=== PATIENT | female | born 1995 | race African-American/Black ===

== ENCOUNTER 2023-02-17 04:49 | Day surgery (SDC) | payer OTHER ==
[2023-02-13 10:33] VITALS: BMI 21.9
[2023-02-17 13:41] VITALS: TEMP 97.8
[2023-02-17 13:46] VITALS: RESP 20
[2023-02-17 14:06] VITALS: BP 111/65; PULSE 88
== END 2023-02-17 14:21 | disposition home or self-care (01) ==
LOC: JASU-ENDO 04:49
PROVIDERS: ATTEND Student in an Organized Health Care Education/Training Program
PROC: 0DB78ZX Excision of Stomach, Pylorus, Via Natural or Artificial Opening Endoscopic, Diagnostic (ICD-10-PCS; 2023-02-17)
PROC: 0DB68ZX Excision of Stomach, Via Natural or Artificial Opening Endoscopic, Diagnostic (ICD-10-PCS; principal; 2023-02-17 14:00)
DX: K29.50 Unspecified chronic gastritis without bleeding (principal); B96.81 Helicobacter pylori [H. pylori] as the cause of diseases classified elsewhere
CPT/HCPCS: 81025; 88305-TC; 88342-TC

== ENCOUNTER 2023-12-07 12:47 | Inpatient (IN) | payer OTHER ==
[2023-12-07] MEDS: ELECTROLYTE-148 SOLN 1,000 ML IV SCH (14:00)
[2023-12-07] MEDS ORDERED: BUTORPHANOL TARTRATE 1 MG/ML VIAL IVPB PRN (14:15)
[2023-12-07 14:56] VITALS: BMI 25.8
[2023-12-07 15:11] LABS: BASO % 0.6 % (0-2.0); EOS % 1.5 % (0-4.5); HEMATOCRIT 32.9 % (32.4-45.2); HEMOGLOBIN 11.5 GM/dL (10.7-15.3); LYMPH % 12.6 % (8-40); MCH 27.1 pg (25.7-33.7); MCHC 35.1 g/dl (32.0-36.0); MEAN CELL VOLUME 77.2 fl (80-96); MEAN PLT VOLUME 9.9 fl (7.5-11.1); MONO % 13.7 % (3.8-10.2); NEUT % 71.6 % (42.8-82.8); PLATELET COUNT 276 10^3/uL (134-434); RBC 4.27 M/mm3 (3.60-5.2); RDW 16.8 % (11.6-15.6); WHITE BLOOD COUNT 9.2 K/mm3 (4.0-10.0)
[2023-12-07 15:16] LABS: INR 0.93 (0.83-1.09); PROTHROMBIN TIME (PATIENT) 10.8 SEC (9.7-13.0)
[2023-12-07 15:19] LABS: ACTIVATED PTT 25.5 SECONDS (25.2-36.5)
[2023-12-07 15:33] LABS: POTASSIUM 4.4 mmol/L (3.5-5.1)
[2023-12-07 15:35] LABS: BLOOD UREA NITROGEN 5.9 mg/dL (7-18); CALCIUM 8.9 mg/dL (8.5-10.1)
[2023-12-07 15:39] LABS: CREATININE 0.5 mg/dL (0.55-1.3)
[2023-12-07] MEDS: DINOPROSTONE 10 MG VAGINAL SUPPOSITORY VG ONE (15:45)
[2023-12-07 16:30] LABS: HIV INTERPRETATION NEGATIVE (NEGATIVE)
[2023-12-07] MEDS ORDERED: AMPICILLIN - 1 GM in SODIUM CHLORIDE 100 ML IVPB SCH (18:30)
[2023-12-07] MEDS ORDERED: OXYTOCIN 30 UNITS in 0.9% NS 30 UNIT/500 ML INFUS.BAG IVPB ONE (22:35)
[2023-12-07] MEDS: OXYTOCIN 30 UNITS in 0.9% NS 30 UNIT/500 ML INFUS.BAG IVPB SCH (22:40)
[2023-12-07] MEDS ORDERED: FENTANYL/BUPIVACAINE/NS/PF - PCEA - 50 ML DISP.SYRIN EP ONE (23:12)
[2023-12-07] MEDS ORDERED: AMPICILLIN SODIUM 2 GM VIAL ONE (23:23)
[2023-12-07] MEDS ORDERED: NALOXONE HCL 0.4 MG/ML VIAL IVPUSH PRN (23:26)
[2023-12-07] MEDS ORDERED: FENTANYL CITRATE/PF 50 MCG/ML VIAL ONE (23:29)
[2023-12-07] MEDS: AMPICILLIN - 2 GM in SODIUM CHLORIDE 100 ML IVPB ONE (23:30)
[2023-12-07] MEDS ORDERED: BUPIVACAINE HCL/PF 0.25% (2.5MG/ML) 10 ML VIAL ONE (23:30)
[2023-12-07] MEDS: FENTANYL/BUPIVACAINE/NS/PF - PCEA - 50 ML DISP.SYRIN EP SCH (23:40)
[2023-12-08] MEDS ORDERED: AMPICILLIN SODIUM 1 GM VIAL ONE ×2 (03:23→06:51)
[2023-12-08] MEDS: AMPICILLIN - 1 GM in SODIUM CHLORIDE 100 ML IVPB SCH (03:30)
[2023-12-08] MEDS ORDERED: FENTANYL/BUPIVACAINE/NS/PF - PCEA - 50 ML DISP.SYRIN EP ONE (04:23)
[2023-12-08] MEDS ORDERED: OXYTOCIN 20 UNITS in 0.9% NS 20 UNIT/1,000 ML INFUS.BAG IV ONE (06:16)
[2023-12-08] MEDS ORDERED: BUPIVACAINE HCL/PF 0.25% (2.5MG/ML) 10 ML VIAL ONE (06:37)
[2023-12-08] MEDS ORDERED: FENTANYL CITRATE/PF 50 MCG/ML VIAL ONE (06:37)
[2023-12-08] MEDS ORDERED: SODIUM CHLORIDE 100 ML IVPB ONE (06:50)
[2023-12-08] MEDS: OXYTOCIN 20 UNITS in 0.9% NS 20 UNIT/1,000 ML INFUS.BAG IV SCH (07:50)
[2023-12-08 08:19] LABS: CORD BASE EXCESS -5.8 mmol/L (0-2); CORD HCO3 22.1 mmHg (20-29); CORD PCO2 52.1 mmHg (30-78); CORD pH 7.245 (7.14-7.44)
[2023-12-08] MEDS ORDERED: BISACODYL 10 MG SUPP.RECT RC PRN (08:57)
[2023-12-08] MEDS ORDERED: METHYLERGONOVINE MALEATE 0.2 MG/1 ML AMP IM PRN (08:57)
[2023-12-08] MEDS ORDERED: oxyCODONE HCL 5 MG TABLET PO PRN (08:57)
[2023-12-08 10:13] VITALS: RESP 18
[2023-12-08] MEDS: PRENATAL VITAMINS W/ FOLIC ACID TABLET (FP) PO SCH (10:57)
[2023-12-08] MEDS: FERROUS SO4 325 MG TABLET (FP) PO SCH (12:13)
[2023-12-08] MEDS: ACETAMINOPHEN 325 MG TABLET (FP) PO PRN (15:21)
[2023-12-08] MEDS: WITCH HAZEL 50% (TUCKS) 40 PAD/JAR PAD TP PRN (17:42)
[2023-12-08] MEDS: BENZOCAINE 28 GM HEMORRHOIDAL OINTMENT TP PRN (17:42)
[2023-12-08] MEDS: BENZOCAINE 20% 57 GM BOTTLE TP PRN (17:42)
[2023-12-08] MEDS: SENNOSIDES/DOCUSATE COMBO (SENNA PLUS) TABLET (UD) PO PRN (22:55)
[2023-12-09] MEDS: PROMETHAZINE HCL 25 MG/1 ML VIAL IVPB ONE (07:44)
[2023-12-09] MEDS: IBUPROFEN 600 MG TABLET (FP) PO PRN (08:30)
[2023-12-09 08:45] LABS: BASO % 0.6 % (0-2.0); EOS % 1.6 % (0-4.5); HEMATOCRIT 23.5 % (32.4-45.2); HEMOGLOBIN 8.4 GM/dL (10.7-15.3); LYMPH % 13.8 % (8-40); MCH 27.4 pg (25.7-33.7); MCHC 35.7 g/dl (32.0-36.0); MEAN CELL VOLUME 76.9 fl (80-96); MEAN PLT VOLUME 9.6 fl (7.5-11.1); MONO % 11.3 % (3.8-10.2); NEUT % 72.7 % (42.8-82.8); PLATELET COUNT 215 10^3/uL (134-434); RBC 3.05 M/mm3 (3.60-5.2); RDW 16.5 % (11.6-15.6)
[2023-12-09 21:20] VITALS: TEMP 98.1
[2023-12-10 09:24] VITALS: BP 115/75; PULSE 90
== END 2023-12-10 13:30 | disposition home or self-care (01) | DRG 560 ==
LOC: JLDR 12:47 → J3W 12-08 09:45
PROVIDERS: ADMIT Obstetrics & Gynecology; ATTEND Obstetrics & Gynecology
PROC: 10E0XZZ Delivery of Products of Conception, External Approach (ICD-10-PCS; principal; 2023-12-08)
PROC: 0W8NXZZ Division of Female Perineum, External Approach (ICD-10-PCS; 2023-12-08)
DX: O48.0 Post-term pregnancy (principal); Z3A.40 40 weeks gestation of pregnancy; O99.824 Streptococcus B carrier state complicating childbirth; Z37.0 Single live birth
CPT/HCPCS: 36415; 36600; 80048; 82803; 85025; 85610; 85730; 86780; 86850; 86900; 86901; 87389